=== PATIENT | female | born 1970 | race Caucasian/White ===

== ENCOUNTER 2019-12-19 14:41 | Emergency (ER) | payer MEDICAID ==
[~2019-12-19] VITALS: Ht 162.6 cm; Wt 63.0 kg
[2019-12-19 14:48] VITALS: BP 86/63
[2019-12-19] MEDS ORDERED: ATOR20TA PO (15:23)
[2019-12-19] MEDS ORDERED: BISA-213 RC (15:23)
[2019-12-19] MEDS ORDERED: BACL5TAB PO (15:23)
[2019-12-19] MEDS ORDERED: FAMO10TA93 PO (15:23)
[2019-12-19] MEDS ORDERED: ACET-2619 PO (15:23)
[2019-12-19] MEDS ORDERED: DOCU-299 PO (15:23)
[2019-12-19] MEDS ORDERED: CHOL1CRY3 MC (15:23)
[2019-12-19] MEDS ORDERED: GABA100C PO (15:23)
[2019-12-19] MEDS ORDERED: HYDR50CA1 PO (15:23)
[2019-12-19 16:04] LABS: BASOPHILS % (AUTO) 0.3 % (0.0-2.0); EOSINOPHILS # (AUTO) 0.1 K/uL (0-0.4); EOSINOPHILS % (AUTO) 1.3 % (0.0-4.0); HEMOGLOBIN 12.7 g/dL (12.0-16.0); LYMPHOCYTES # (AUTO) 1.5 K/uL (2.5-16.5); LYMPHOCYTES % (AUTO) 33.9 % (20.5-51.1); MEAN CORPUSCULAR HEMOGLOBIN 30 pg (27-31); MEAN CORPUSCULAR HGB CONC 33 g/dL (33-37); MEAN CORPUSCULAR VOLUME 90.7 fL (80-94); MONOCYTES # (AUTO) 0.4 K/uL (0.8-1.0); MONOCYTES % (AUTO) 8.4 % (1.7-9.3); NEUTROPHILS # (AUTO) 2.5 K/uL (1.8-7.7); NEUTROPHILS % (AUTO) 56.1 % (42.2-75.2); PLATELET COUNT (AUTO) 257 K/uL (140-450); RED CELL DISTRIBUTION WIDTH 13.7 % (11.6-13.7); WHITE BLOOD COUNT (AUTO) 4.5 K/uL (4.8-10.8)
[2019-12-19 16:18] LABS: PROTHROMBIN TIME 12.6 secs (10.8-13.4)
[2019-12-19 16:26] LABS: ALBUMIN 3.3 g/dL (3.4-5.0); ANION GAP 15.7 (8-16); CARBON DIOXIDE 25.7 mmol/L (21-32); CREATININE 0.5 mg/dL (0.6-1.3); POTASSIUM 3.4 mmol/L (3.5-5.1); TOTAL BILIRUBIN 0.5 mg/dL (0.0-1.0)
[2019-12-19] MEDS: NACL 0.9% 1,000 ML IV SCH ×2 (16:29→17:54)
[2019-12-19 17:13] LABS: BILIRUBIN,URINE NEGATIVE (NEGATIVE); BLOOD, URINE NEGATIVE (NEGATIVE); LEUKOCYTE ESTERASE ,URINE NEGATIVE (NEGATIVE); NITRITE, URINE NEGATIVE (NEGATIVE); UGLUCOSE NEGATIVE (NEGATIVE)
[2019-12-19 17:15] LABS: APPEARANCE,URINE HAZY (CLEAR); COLOR,URINE AMBER (YELLOW)
[2019-12-19] MEDS ORDERED: NACL 0.9% 1,000 ML IV ONE (17:20)
[2019-12-19 19:31] VITALS: BP 112/67
== END 2019-12-19 19:32 ==
LOC: MED 14:41
DX: I10 Essential (primary) hypertension (principal); E78.5 Hyperlipidemia, unspecified; G40.909 Epilepsy, unspecified, not intractable, without status epilepticus; K21.9 Gastro-esophageal reflux disease without esophagitis; Z86.73 Personal history of transient ischemic attack (TIA), and cerebral infarction without residual deficits; Z98.890 Other specified postprocedural states; Z79.899 Other long term (current) drug therapy; Z88.8 Allergy status to other drugs, medicaments and biological substances
CPT/HCPCS: 36415; 71045; 80053; 81003; 83605; 83880; 84484; 85025; 85610; 85730; 87040; 87086; 93005; 99285; J7030; Q0092

== ENCOUNTER 2021-04-20 14:19 | Emergency (ER) | payer MEDICAID ==
[~2021-04-20] VITALS: Ht 162.6 cm; Wt 68.9 kg
[~2021-04-20 14:19] MED LIST: ACET-2619 PO; ATOR20TA PO; BACL5TAB PO; BISA-213 RC; CHOL1CRY3 MC; DOCU-299 PO; FAMO-368 PO; GABA100C PO; HYDR50CA1 PO
[2021-04-20 14:29] VITALS: BP 126/78
[2021-04-20] MEDS ORDERED: KETOROLAC 60 MG/2 ML VIAL IM ONE (14:55)
[2021-04-20] MEDS ORDERED: MORPHINE SULFATE 4 MG/ML SYR IM ONE (15:15)
[2021-04-20] MEDS ORDERED: IBUP-2213 PO (15:43)
[2021-04-20] MEDS ORDERED: CIPR500T4 PO (15:43)
[2021-04-20] MEDS ORDERED: ACET-8386 PO (15:43)
[2021-04-20 17:27] VITALS: BP 127/58
== END 2021-04-20 17:27 ==
LOC: MED 14:19
DX: N39.0 Urinary tract infection, site not specified (principal); Z86.73 Personal history of transient ischemic attack (TIA), and cerebral infarction without residual deficits; Z98.890 Other specified postprocedural states; Z79.899 Other long term (current) drug therapy; Z91.011 Allergy to milk products
CPT/HCPCS: 81002; 87086; 96372; 99284; J1885; J2270

== ENCOUNTER 2022-05-22 14:31 | Emergency (ER) | payer MEDICAID ==
[~2022-05-22] VITALS: Ht 160 cm; Wt 59.0 kg
[~2022-05-22 14:31] MED LIST changes: +ACET-8905 PO; +CIPR500T4 PO; +IBUP-2213 PO
[2022-05-22] MEDS ORDERED: NACL 0.9% 1,000 ML IV ONE (14:40)
[2022-05-22 14:49] VITALS: BP 115/68
--- NOTE | 2022-05-22 15:00 | NUR ---
PT LAYING IN BED ANXIOUS. PT C/O DYSURIA. PT IS NON-COMPLIANT. ATTEMPTED TO COLLECTED URINE WITH BED PAIN BUT PT STATES " IM NOT GOING TO URINATE IN NO DAMB CUP" PT IN BED AWAITING TO BE SEEN BY
[2022-05-22 15:10] LABS: BASOPHILS # (AUTO) 0.1 K/uL (0.00-0.22); BASOPHILS % (AUTO) 0.9 % (0.0-2.0); EOSINOPHILS # (AUTO) 0.1 K/uL (0-0.4); EOSINOPHILS % (AUTO) 2.6 % (0.0-4.0); HEMATOCRIT 30.1 % (36-48); HEMOGLOBIN 9.8 g/dL (12.0-16.0); LYMPHOCYTES # (AUTO) 1.7 K/uL (2.5-16.5); LYMPHOCYTES % (AUTO) 28.4 % (20.5-51.1); MEAN CORPUSCULAR HEMOGLOBIN 26 pg (27-31); MEAN CORPUSCULAR HGB CONC 33 g/dL (33-37); MEAN CORPUSCULAR VOLUME 80.4 fL (80-94); MONOCYTES # (AUTO) 0.5 K/uL (0.8-1.0); MONOCYTES % (AUTO) 7.9 % (1.7-9.3); NEUTROPHILS # (AUTO) 3.5 K/uL (1.8-7.7); NEUTROPHILS % (AUTO) 60.2 % (42.2-75.2); PLATELET COUNT (AUTO) 289 K/uL (140-450); RED BLOOD CELL COUNT(AUTO) 3.74 MIL/uL (4.20-5.40); RED CELL DISTRIBUTION WIDTH 15.5 % (11.6-13.7); WHITE BLOOD COUNT (AUTO) 5.8 K/uL (4.8-10.8)
[2022-05-22 15:38] LABS: ALBUMIN 2.6 g/dL (3.4-5.0); ANION GAP 9.3 (8-16); CARBON DIOXIDE 29.1 mmol/L (21-32); CREATININE 0.5 mg/dL (0.6-1.3); POTASSIUM 3.4 mmol/L (3.5-5.1); TOTAL BILIRUBIN 0.2 mg/dL (0.0-1.0)
[2022-05-22] MEDS ORDERED: MORPHINE SULFATE 4 MG/ML SYR IVP ONE (15:40)
[2022-05-22] MEDS ORDERED: ONDANSETRON 4 MG/2 ML VIAL IVP ONE (15:40)
--- NOTE | 2022-05-22 16:16 | NUR ---
INSERTED F/C 16 CROATIAN. F/C VERY DIFFICULT, NOTED: RESISTANCE WHILE INSERTING CATH. NOTED: FOUL SMELLING ODAR, WITH BROWN, SECRETIONS.
--- NOTE | 2022-05-22 17:10 | NUR ---
RECEIVED CALL FROM [facility] THAT CT WAS NOT COMPLETED D/T PTS CONTRACTED LEGS. DR WATTS AWARE
[2022-05-22 18:32] LABS: BILIRUBIN,URINE NEGATIVE (NEGATIVE); BLOOD, URINE 3+ (NEGATIVE); LEUKOCYTE ESTERASE ,URINE 3+ (NEGATIVE); NITRITE, URINE POSITIVE (NEGATIVE); PH,URINE 6.5 (5.0-9.0); UGLUCOSE NEGATIVE (NEGATIVE)
[2022-05-22 18:37] LABS: APPEARANCE,URINE HAZY (CLEAR); COLOR,URINE STRAW (YELLOW)
[2022-05-22 19:01] LABS: RBC,URINE 11-20 (MOD) /HPF (0-5)
[2022-05-22] MEDS ORDERED: CEPH-588 PO (19:34)
[2022-05-22] MEDS ORDERED: cefTRIAXone 1,000 MG VIAL ONE (19:44)
--- NOTE | 2022-05-22 20:25 | NUR ---
Spoke with patient's family and update patient status.
--- NOTE | 2022-05-22 20:50 | NUR ---
Report given to [place] at [facility] [place]
--- NOTE | 2022-05-22 21:04 | NUR ---
Patient discharged back to facility with [facility] transport arranged
[2022-05-22 21:08] VITALS: BP 115/68
[2022-05-25] MEDS ORDERED: LEVO-481 PO (08:06)
--- NOTE | 2022-05-25 09:33 | NUR ---
LATE ENTRY. RECEIVED POSITIVE URINE CULTURE. FORM GIVEN TO DR ORNELAS. NEW RX OF LEVOFLOXACIN SENT TO [facility]. CONTACTED [facility] [place] TO NOTIFY THEM. RESULTS FAXED TO NURSE PEREZ AT [phone]
--- NOTE | 2022-05-25 18:27 | NUR ---
LATE ENTRY. RECEIVED CALL FROM [facility] THAT THEY DIDNT RECEIVE THE FAX. SPOKE WITH TERRY. WRONG FAX NUMBER PREVIOUSLY GIVEN. RESULTS FAXED AGAIN TO [phone] Addendum: 05/25/22 at 1830 by [email or web address] CONFIRMATION OF SUCCESSFUL FAX RECEIVED
== END 2022-05-22 21:04 ==
LOC: MED 14:31
DX: N93.9 Abnormal uterine and vaginal bleeding, unspecified (principal); R30.0 Dysuria; N39.0 Urinary tract infection, site not specified; K21.9 Gastro-esophageal reflux disease without esophagitis; Z96.0 Presence of urogenital implants; Z86.73 Personal history of transient ischemic attack (TIA), and cerebral infarction without residual deficits; Z79.899 Other long term (current) drug therapy; Z91.018 Allergy to other foods
CPT/HCPCS: 36415; 74018; 76770; 76856; 80053; 81001; 81025; 85025; 86886; 86900; 86901; 87086; 93976; 96361; 96365; 96375; 99285; J0696; J2270; J2405; Q0092